=== PATIENT | male | born 1985 | race Caucasian/White ===

== ENCOUNTER 2019-12-14 14:56 | Emergency (ER) | payer SELFPAY ==
[2019-12-14] MEDS ORDERED: LIDOCAINE 1% MPF 30 ML VIAL ONE (15:12)
--- NOTE | 2019-12-14 15:54 | ER ---
Nurse's Notes [facility] Name: Tony German Age: 34 yrs Sex: Male : 1985 Arrival Date: 12/14/2019 Time: 14:57 Bed 5 Private MD: Diagnosis: Laceration without foreign body of right hand Presentation: 12/13 14:57 Method Of Arrival: Ambulatory sv 15:05 Chief complaint: Patient states: right laceration with steel cages of animals that sv happened today. Coronavirus screen: Proceed with normal triage. Patient reports a cough. Patient denies shortness of breath or difficulty breathing. Patient denies measured and/or subjective temperature greater than 100.4F prior to today's visit. Patient denies travel on a cruise ship or to a country the [facility] currently lists as an affected area. Patient denies contact with known and/or suspected case of COVID-19. Ebola Screen: No symptoms or risks identified at this time. Complicating Factors: There are no complicating factors for this patient. Onset of symptoms was December 14, 2019. 15:05 Acuity: JANI 3 sv 16:16 Initial Sepsis Screen: Does the patient meet any 2 criteria? No. Patient's initial ls4 sepsis screen is negative. Does the patient have a suspected source of infection? No. Patient's initial sepsis screen is negative. Risk Assessment: Do you want to hurt yourself or someone else? Patient reports no desire to harm self or others. Triage Assessment: 15:07 General: Appears in no apparent distress. uncomfortable, Behavior is cooperative, sv appropriate for age, anxious. Pain: Complains of pain in right hand. Neuro: Level of Consciousness is awake, alert, obeys commands, Gait is steady. Respiratory: Respiratory effort is even, unlabored. Injury Description: Laceration sustained to heel of right hand is contaminated, 0.5 to 2.5 cm long, was sustained 30-60 minutes ago. is bleeding a small amount. Historical: - Allergies: 15:07 No Known Allergies; sv - PMHx: 15:07 None; sv - PSHx: 15:07 None; sv - Immunization history:: Flu vaccine is not up to date. - Social history:: Smoking status: Patient reports the use of cigarette tobacco products. Screenin:12 Abuse screen: Denies threats or abuse. Denies injuries from another. Nutritional bp screening: No deficits noted. Tuberculosis screening: No symptoms or risk factors identified. Fall Risk None identified. Assessment: 15:05 General: SEE TRIAGE NOTE. Musculoskeletal: Circulation, motion, and sensation intact. bp Range of motion: intact in all extremities. Injury Description: Laceration sustained to heel of right hand is 2.6 to 7.5 cm long, bleeding moderately, LINEAR. Vital Signs: 15:05 Resp 26; Weight 142.88 kg; Height 6 ft. 0 in. (182.88 cm); Pain 10/10; sv 15:08 BP 142 / 93; Pulse 109; Resp 17; Temp 97.5; Pulse Ox 95% ; bp 16:15 BP 141 / 62; Pulse 89; Resp 14; Pulse Ox 100% on R/A; Pain 0/10; ls4 15:05 Body Mass Index 42.72 (142.88 kg, 182.88 cm) sv ED Course: 14:57 Patient arrived in ED. as 14:57 Arm band placed on. sv 14:58 Jarek Lamb, BELKIS is Primary Nurse. bp 15:04 Dorie Walsh FNP-C is PHCP. kb 15:04 Shaan Pleitez MD is Attending Physician. kb 15:06 Triage completed. sv 15:12 Patient has correct armband on for positive identification. Bed in low position. Call bp light in reach. Side rails up X2. 16:15 No provider procedures requiring assistance completed. Patient did not have IV access ls4 during this emergency room visit. 16:17 Dressings: Band aid x 2 right hand ANTIBIOTIC OINTMENT APPLIED. THEN 2 LARGE BANDAIDS. ls4 Administered Medications: 15:54 Drug: Tetanus-Diphtheria Toxoid Adult 0.5 ml {[employer]: [employer]. Exp: ls4 09/08/2021. Lot #: [id number]. } Route: IM; Site: right deltoid; 16:14 Follow up: Response: No adverse reaction; Marked relief of symptoms ls4 16:02 Drug: Lidocaine (1 %) 1 vials Volume: 20 ml; Route: Infiltration; bp 16:14 Follow up: Response: No adverse reaction ls4 Outcome: 15:52 Discharge ordered by . kb 16:16 Discharged to home ambulatory. ls4 16:16 Condition: good 16:16 Discharge instructions given to patient, Instructed on discharge instructions, follow up and referral plans. medication usage, safety practices, wound care, Demonstrated understanding of instructions, follow-up care, medications. 16:18 Patient left the ED. ls4 Signatures: Dorie Walsh, ZOYA-Meg KENNY-Tanesha Henriquez, RN RN Hayley Padilla Brian, RN RN Evelia Goldman RN RN ls4
--- NOTE | 2019-12-14 15:54 | EDPHYS ---
Physician Documentation [facility] Name: Tony German Age: 34 yrs Sex: Male : 1985 Arrival Date: 12/14/2019 Time: 14:57 Bed 5 Private MD: ED Physician Shaan Pleitez HPI: 12/13 16:08 This 34 yrs old Male presents to ER via Ambulatory with complaints of kb Laceration To Hand. 16:08 The patient has a laceration related to: dog gate fell down and pt used his hand to kb catch it causing laceration. The laceration(s) is(are) located on the heel of right hand. Onset: The symptoms/episode began/occurred just prior to arrival. Associated signs and symptoms: The patient has no apparent associated signs or symptoms. The patient has not experienced similar symptoms in the past. The patient has not recently seen a physician. Historical: - Allergies: 15:07 No Known Allergies; sv - PMHx: 15:07 None; sv - PSHx: 15:07 None; sv - Immunization history:: Flu vaccine is not up to date. - Social history:: Smoking status: Patient reports the use of cigarette tobacco products. ROS: 16:08 Constitutional: Negative for fever, chills, and weight loss, Neck: Negative for injury, kb pain, and swelling, Cardiovascular: Negative for chest pain, palpitations, and edema, Respiratory: Negative for shortness of breath, cough, wheezing, and pleuritic chest pain, Abdomen/GI: Negative for abdominal pain, nausea, vomiting, diarrhea, and constipation, Back: Negative for injury and pain, MS/Extremity: Negative for injury and deformity, Neuro: Negative for headache, weakness, numbness, tingling, and seizure. 16:08 Skin: Positive for laceration(s), of the heel of right hand. Exam: 16:08 Constitutional: This is a well developed, well nourished patient who is awake, alert, kb and in no acute distress. Head/Face: Normocephalic, atraumatic. Cardiovascular: Regular rate and rhythm with a normal S1 and S2. No gallops, murmurs, or rubs. Normal PMI, no JVD. No pulse deficits. Respiratory: Lungs have equal breath sounds bilaterally, clear to auscultation and percussion. No rales, rhonchi or wheezes noted. No increased work of breathing, no retractions or nasal flaring. Abdomen/GI: Soft, non-tender, with normal bowel sounds. No distension or tympany. No guarding or rebound. No evidence of tenderness throughout. MS/ Extremity: Pulses equal, no cyanosis. Neurovascular intact. Full, normal range of motion. Neuro: Awake and alert, GCS 15, oriented to person, place, time, and situation. Cranial nerves II-XII grossly intact. Motor strength 5/5 in all extremities. Sensory grossly intact. Cerebellar exam normal. Normal gait. 16:08 Skin: injury, laceration(s), the wound is approximately 3 cm(s), of the heel of right hand, that can be described as clean, no foreign body, linear, with mild bleeding. Vital Signs: 15:05 Resp 26; Weight 142.88 kg; Height 6 ft. 0 in. (182.88 cm); Pain 10/10; sv 15:08 BP 142 / 93; Pulse 109; Resp 17; Temp 97.5; Pulse Ox 95% ; bp 16:15 BP 141 / 62; Pulse 89; Resp 14; Pulse Ox 100% on R/A; Pain 0/10; ls4 15:05 Body Mass Index 42.72 (142.88 kg, 182.88 cm) sv Laceration: 16:07 Wound Repair of 3cm ( 1.2in ) subcutaneous laceration to heel of right hand. Linear kb shaped.. Distal neuro/vascular/tendon intact. Anesthesia: Wound infiltrated with 7 mls of 1% lidocaine. Wound prep: Extensive cleansing with betadine by me, Wound irrigation with saline by me. Skin closed with 6 4-0 Prolene using simple sutures and sterile technique. Patient tolerated well. MDM: 15:05 Patient medically screened. kb 16:07 Data reviewed: vital signs, nurses notes. Data interpreted: Pulse oximetry: on room air kb is 95 %. Interpretation: normal. Counseling: I had a detailed discussion with the patient and/or guardian regarding: the historical points, exam findings, and any diagnostic results supporting the discharge/admit diagnosis, the need for outpatient follow up, a family practitioner, to return to the emergency department if symptoms worsen or persist or if there are any questions or concerns that arise at home. 12/13 15:49 Order name: Prolene, Sutures; Complete Time: 16:02 kb 12/13 15:49 Order name: Dressing - Wound; Complete Time: 16:02 kb 12/13 15:49 Order name: Gloves, Sterile; Complete Time: 16:02 kb 12/13 15:49 Order name: Setup Suture Tray; Complete Time: 16:02 kb Administered Medications: 15:54 Drug: Tetanus-Diphtheria Toxoid Adult 0.5 ml {Emergency Medicine: [employer]. Exp: ls4 09/08/2021. Lot #: [id number]. } Route: IM; Site: right deltoid; 16:14 Follow up: Response: No adverse reaction; Marked relief of symptoms ls4 16:02 Drug: Lidocaine (1 %) 1 vials Volume: 20 ml; Route: Infiltration; bp 16:14 Follow up: Response: No adverse reaction ls4 Disposition: 17:39 Co-signature as Attending Physician, Shaan Pleitez MD I agree with the assessment and kdr plan of care. Disposition: 12/14/19 15:52 Discharged to Home. Impression: Laceration without foreign body of right hand. - Condition is Stable. - Discharge Instructions: Laceration Care, Adult, Ebna-[id number]. - Medication Reconciliation Form, Thank You Letter, Antibiotic Education, Prescription Opioid Use form. - Follow up: Emergency Department; When: As needed; Reason: Worsening of condition. Follow up: Private Physician; When: 2 - 3 days; Reason: Recheck today's complaints, Continuance of care, Re-evaluation by your physician. Signatures: Dorie Walsh, ZOYA-C MILL DRESSER-Tanesha Henriquez RN RN Shaan Gonzalez MD MD [facility] Jarek Lamb RN RN Evelia Goldman, BELKIS RN ls4 Corrections: (The following items were deleted from the chart) 16:18 15:52 12/14/2019 15:52 Discharged to Home. Impression: Laceration without foreign body ls4 of right hand. Condition is Stable. Forms are Medication Reconciliation Form, Thank You Letter, Antibiotic Education, Prescription Opioid Use. Follow up: Emergency Department; When: As needed; Reason: Worsening of condition. Follow up: Private Physician; When: 2 - 3 days; Reason: Recheck today's complaints, Continuance of care, Re-evaluation by your physician. kb
[2019-12-14] MEDS ORDERED: TETANUS & DIPHTHERIA TOX,ADULT 0.5 ML VIAL ONE (15:59)
[2019-12-14] MEDS ORDERED: LIDOCAINE 1% MPF 5 ML VIAL ONE (15:59)
[2019-12-14 16:25] VITALS: BP 142/93; TEMP 97.5; O2SAT 95
== END 2019-12-14 16:18 | disposition home or self-care (01) ==
LOC: ER 14:56
PROC: 0JQJ0ZZ Repair Right Hand Subcutaneous Tissue and Fascia, Open Approach (ICD-10-PCS; principal; 2019-12-14)
DX: S61.411A Laceration without foreign body of right hand, initial encounter (principal); W22.8XXA Striking against or struck by other objects, initial encounter; Y93.89 Activity, other specified; Y92.9 Unspecified place or not applicable; Z23 Encounter for immunization; F17.210 Nicotine dependence, cigarettes, uncomplicated
CPT/HCPCS: 90471; 90714; 99283